=== PATIENT | female | born 1985 ===

== ENCOUNTER 2017-07-16 10:40 | Inpatient (IN) | payer OTHER ==
[2017-07-16 23:39] VITALS: BMI 30.4
[2017-07-16] MEDS ORDERED: Lactated Ringer's 1,000 ML IV SCH (23:45)
--- NOTE | 2017-07-16 23:46 | OBHP ---
Datetime: 07/16/2017 23:36 IP Adm Impression: Term, intrauterine IP Admit Plan: Admit to unit; Initiate labor induction protocol Admit Comment, IP Provider: g1 edc 07/20 presents for induction. denies srom, ctxs, vag bleeding or d ecreased fm. states ob hx uncomplicated pmhx:denies pshx: denies shx: denies etoh, illicit drugs or tobacco nkda medic: pnv I: 39.3wks induction p: admit for cervidel- d/w dr pineda Pelvic Type - PN: Adequate Extremities - PN: Normal Abdomen - PN: Normal Lungs - PN: Normal Heart - PN: Normal Neurologic - PN: Normal HEENT - PN: Normal General - PN: Normal Presentation-Admit: Vertex FHR - Baseline A Provider: 130 Comments, ACOG Physical Exam: 12/27 rpr hiv nr gbs neg EGA AdmitDate IP: 39.3 Vital Signs Provider: Within Normal Limits IP Chief Complaint: Scheduled induction of labor NICHD Variability Prov Fetus A: Moderate 6-25bpm NICHD Accel Fetus A IP Provider: 15X15 NICHD Decel Fetus A IP Provider: None Genitourinary Exam: Normal
--- NOTE | 2017-07-17 00:01 | OBADHP ---
Datetime: 07/16/2017 23:36 Admit Comment, IP Provider: g1 edc 07/20 presents for induction. denies srom, ctxs, vag bleeding or d ecreased fm. states ob hx uncomplicated pmhx:denies pshx: denies shx: denies etoh, illicit drugs or tobacco nkda medic: pnv I: 39.3wks induction p: admit for cervidel- d/w dr pineda Pelvic Type - PN: Adequate Extremities - PN: Normal Abdomen - PN: Normal Lungs - PN: Normal Heart - PN: Normal Neurologic - PN: Normal HEENT - PN: Normal General - PN: Normal Presentation-Admit: Vertex FHR - Baseline A Provider: 130 Comments, ACOG Physical Exam: 12/27 rpr hiv nr gbs neg Vital Signs Provider: Within Normal Limits IP Chief Complaint: Scheduled induction of labor NICHD Variability Prov Fetus A: Moderate 6-25bpm NICHD Accel Fetus A IP Provider: 15X15 NICHD Decel Fetus A IP Provider: None Genitourinary Exam: Normal EGA AdmitDate IP: 39.3 IP Adm Impression: Term, intrauterine IP Admit Plan: Admit to unit; Initiate labor induction protocol
[2017-07-17 00:40] LABS: BASO % 0.3 % (0.0-2.0); EOS % 0.3 % (0.0-4.0); HEMOGLOBIN 11.4 g/dL (11.0-16.0); LYMPH # 2.3 K/uL (1.0-4.3); MEAN CORPUSCULAR HEMOGLOBIN 30.2 pg (27.0-31.0); MEAN CORPUSCULAR HGB CONC 34.7 g/dL (33.0-37.0); MEAN PLATELET VOLUME 9.5 fL (7.2-11.7); MONO % 8.1 % (0.0-10.0); NEUT # 8.9 K/uL (1.8-7.0); NEUT % 72.3 % (50.0-75.0); NRBC % 0.1 % (0.0-2.0); RBC 3.78 Mil/uL (3.80-5.20); RED CELL DISTRIBUTION WIDTH 14.7 % (11.5-14.5); WHITE BLOOD COUNT 12.3 K/uL (4.8-10.8)
[2017-07-17 01:35] LABS: ALBUMIN 3.4 g/dL (3.5-5.0); ALT/SGPT 13 U/L (9-52); AST/SGOT 32 U/L (14-36); BLOOD UREA NITROGEN 12 mg/dL (7-17); CALCIUM 9.2 mg/dl (8.6-10.4); GFR AFRICAN-AMERICAN > 60; GFR NON-AFRICAN AMERICAN > 60
[2017-07-17] MEDS ORDERED: Fentanyl/Bupivacaine HCl 250 ML EPI ONE (06:20)
--- NOTE | 2017-07-17 09:57 | OBPN ---
Datetime: 07/17/2017 09:50 IP Progress Impression: Normal progression of labor IP Progress Plan: Continue present management Membranes, Provider: Intact Contraction Comments Provider: q1-=2mi FHR - Baseline A Provider: 145 Gestation - Est Wks by US: 39.4 IP Progress Note Comment: pt seen adn examiend vss E:M Ct aI TOCO q 1-2 min s/p epudural cervidl removed as per pmd anestheisa dw Dr Carranza Vital Signs Provider: Reviewed; Within Normal Limits NICHD Variability Prov Fetus A: Marked >25bpm Dilatation, Provider: 1 Effacement, Provider: 50 Station, Provider: -3 Datetime: 07/16/2017 23:36 Presentation-Admit: Vertex NICHD Accel Fetus A IP Provider: 15X15 NICHD Decel Fetus A IP Provider: None
[2017-07-17] MEDS ORDERED: Sodium Bicarbonate (8.4%) 50 Meq Syringe ONE (18:45)
[2017-07-17] MEDS ORDERED: Sodium Citrate/Citric Acid 15 ml Sol PO ONE (19:06)
[2017-07-17] MEDS ORDERED: Oxytocin 20 units in LR 2,000 ML IV ONE (19:08)
[2017-07-17] MEDS ORDERED: Sodium Citrate/Citric Acid 15 ml Sol ONE (19:08)
[2017-07-17] MEDS ORDERED: ceFAZolin IV 2 gm in Dextrose 2 GM/50 ML BAG IVPB ONE (19:15)
[2017-07-17] MEDS ORDERED: Triamcinolone Acetonide 40 mg/mL Inj ONE (19:42)
[2017-07-17] MEDS ORDERED: Midazolam 2 MG/2 ML VIAL ONE (19:43)
[2017-07-17] MEDS ORDERED: Oxytocin 10 Units/ml Inj ONE (19:50)
--- NOTE | 2017-07-17 20:36 | OBDS ---
DELIVERY PERSONNEL Delivery Doctor: Christina Carranza MD Scrub Nurse: Radhika Avery Boiler Out: Yris Fallon RN (Annotations: Data stored by Jaja on behalf of user) Anesthesiologist: kandice MATERNAL INFORMATION Delivery Anesthesia: Spinal Medications in Delivery: pitocin 40 units, methergin 0.2 mg IM Estimated Blood Loss (ml): 600 Placenta Cultured: No Maternal Complications: None LABOR SUMMARY EDC: 07/20/2017 00:00 No. Babies in Womb: 1 Attempted: No Labor Anesthesia: None LABOR INFORMATION Reason for Induction: Macrosomia Cervical Ripening Agents: Cervidil (Annotations: removed by dr patton) Cervical Ripening Agents: Cervidil Cervical Ripening Agents: Cervidil Cervical Ripening Agents: Cervidil Cervical Ripening Agents: Cervidil Cervical Ripening Agents: Cervidil Cervical Ripening Agents: Cervidil (Annotations: placed intravaginally by DR MCCOY) Oxytocin: N/A Group B Beta Strep: Negative Steroids Given: None Reason Steroids Not Administered: Not Applicable STAGES OF LABOR Stage 3 hrs: 0 Stage 3 min: 1 VAGINAL DELIVERY Episiotomy: None Laceration Extension: N/A Laceration Type: None CSECTION DELIVERY Primary Indication: Failed Induction CSection Urgency: Emergency CSection Incidence: Primary Labor: Labor Elective: Nonelective CSection Incision: Lower Uterine Transverse BABY A INFORMATION Infant Delivery Date/Time: 07/17/2017 19:45 Method of Delivery: Born in Route : No : N/A Forceps: N/A Vacuum Extraction: N/A Shoulder Dystocia : No SHOULDER DYSTOCIA BABY A Infant Delivery Date/Time: 07/17/2017 19:45 PRESENTATION/POSITION BABY A Presentation: Cephalic Cephalic Presentation: Vertex Vertex Position: Left Occipital Anterior Breech Presentation: N/A PLACENTA INFORMATION BABY A Placenta Delivery Time : 07/17/2017 19:46 Placenta Method of Delivery: Manual Removal Placenta Status: Delivered SCORES BABY A Heart Rate 1 min: >100 bpm Resp Effort 1 min: Good Cry Reflex Irritability 1 min: Cough or Sneeze or Pulls Away Muscle Tone 1 min: Active Motion Color 1 min: Body [place], Extremities Blue SCORE 1 MIN: 9 Heart Rate 5 min: >100 bpm Resp Effort 5 min: Good Cry Reflex Irritability 5 min: Cough or Sneeze or Pulls Away Muscle Tone 5 min: Active Motion Color 5 min: Body [place], Extremities Blue SCORE 5 MIN: 9 INFORMATION BABY A Gestational Age at Delivery: 39.4 Gestational Status: Term Infant Outcome : Liveborn Infant Condition : Stable Infant Sex: Male IDENTIFICATION/MEDS BABY A ID Band Number: [id number] ID Band Location: Left Leg; Left Arm Sensor Applied: Yes Sensor Number: [id number] Sensor Location : Cord Clamp Vitamin K Given : Aquamephyton 1 mg IM Erythromycin Given: Given Both Eyes WEIGHT/LENGTH BABY A Birthweight (gms): 5160 Weight (lb): 11 Weight (oz): 6 Length Inches: 21.00 Length cms: 53.3 CORD INFORMATION BABY A No. Cord Vessels: 3 Nuchal Cord : N/A Cord Blood Taken: Yes Infant Suction: Mouth ASSESSMENT BABY A Infant Complications: None Physical Findings at Delivery: Within Normal Limits Infant Respirations: Appears Normal Account Maintenance Representative/ALS Called : No Infant Care By: Dr. Lamb Transferred To: [facility]
--- NOTE | 2017-07-17 20:40 | PCM.SURG1 ---
Surgeon's Initial Post Op Note - Surgeon's Notes Surgeon: Dr Carranza Dna Analyst: Dr. Cadena Type of Anesthesia: Other Anesthesia Administered By: Dr. Barros Pre-Operative Diagnosis: 32 yo Failed Induction, Macrosomia Operative Findings: Normal tubes and ovaries , Male infant cephalic presentation 8 and 9 Weight 11 lb 6 oz Post-Operative Diagnosis: Same as above Operation Performed: Primary Ltcs Specimen/Specimens Removed: Cord blood, cord Estimated Blood Loss: EBL {In ML}: 600 Blood Products Given: N/A Drains Used: No Drains Post-Op Condition: Good Date of Surgery/Procedure: 07/17/17 Time of Surgery/Procedure: 20:39
[2017-07-18] MEDS: Lactated Ringer's 1,000 ML IV SCH ×2 (04:57→13:22)
[2017-07-18 08:20] LABS: MEAN CORPUSCULAR HEMOGLOBIN 30.3 pg (27.0-31.0); MEAN CORPUSCULAR HGB CONC 34.8 g/dL (33.0-37.0); MEAN PLATELET VOLUME 9.2 fL (7.2-11.7); RBC 3.62 Mil/uL (3.80-5.20); RED CELL DISTRIBUTION WIDTH 14.9 % (11.5-14.5); WHITE BLOOD COUNT 16.3 K/uL (4.8-10.8)
[2017-07-18] MEDS: Prenatal Multivit/Folic Acid/Iron Tab PO SCH (09:41)
[2017-07-18] MEDS: Oxycodone/Acetaminophen 5/325 mg Tab PO PRN (18:22)
[2017-07-18] MEDS ORDERED: Bisacodyl 5mg EC Tab PO ONE (20:42)
--- NOTE | 2017-07-18 23:19 | OBPPN ---
Datetime: 07/18/2017 23:17 PP Pain Prov: Within normal limits PP Nausea Prov: Denies PP Flatus Prov: Yes PP Breasts Prov: Normal PP Heart Prov: Normal PP Lungs Prov: Normal PP Abdomen/Uterus Prov: Normal PP Lochia Prov: Normal PP Vulva/Perineum Prov: Normal PP CVA Tenderness Prov: Normal PP Extremities Prov: Normal PP Impression Prov: Normal progression PP Plan Prov: Continue present management Vital Signs Provider PP: Reviewed
[2017-07-19] MEDS: Oxycodone/Acetaminophen 5/325 mg Tab PO PRN (00:06)
[2017-07-19 00:15] VITALS: RESP 20
[2017-07-19] MEDS: Prenatal Multivit/Folic Acid/Iron Tab PO SCH (09:13)
[2017-07-20 07:58] VITALS: BP 105/70; PULSE 71; TEMP 98.7; O2SAT 98
[2017-07-20] MEDS: Prenatal Multivit/Folic Acid/Iron Tab PO SCH (09:45)
--- NOTE | 2017-07-20 13:44 | CP.PCM.PN ---
Subjective - Date & Time of Evaluation Date of Evaluation: 07/20/17 Time of Evaluation: 13:40 - Subjective Subjective: 32 yo S/P Primary LTCS Objective - Vital Signs/Intake and Output Vital Signs (last 24 hours): Temp Pulse Resp BP Pulse Ox 98.7 F 71 20 105/70 98 07/20/17 07:56 07/20/17 07:56 07/20/17 07:56 07/20/17 07:56 07/20/17 07:56 - Medications Medications: Current Medications Acetaminophen (Tylenol 650 Mg Supp) 650 mg [place] Q6 PRN PRN Reason: Fever >100.4 F Acetaminophen (Tylenol 325mg Tab) 650 mg PO Q6 PRN PRN Reason: Agitation Docusate Sodium (Colace) 100 mg PO BID [facility] Last Admin: 07/20/17 09:45 Dose: 100 mg Famotidine (Pepcid) 20 mg IVP DAILY [facility] Ibuprofen (Motrin Tab) 600 mg PO Q6H PRN PRN Reason: Pain, Mild (1-3) Last Admin: 07/19/17 17:17 Dose: 600 mg Oxycodone/Acetaminophen (Percocet 5/325 Mg Tab) 2 tab PO Q4H PRN PRN Reason: Pain, severe (8-10) Stop: 07/20/17 20:43 Last Admin: 07/19/17 00:06 Dose: 2 tab Multivit/Folic Acid/Iron () 1 tab PO DAILY [facility] Last Admin: 07/20/17 09:45 Dose: 1 tab - Labs Labs: 07/18/17 08:06 07/17/17 01:25 - Constitutional Appears: Well - Head Exam Head Exam: ATRAUMATIC, NORMAL INSPECTION, NORMOCEPHALIC - Eye Exam Eye Exam: EOMI, Normal appearance, PERRL Pupil Exam: NORMAL ACCOMODATION, PERRL - ENT Exam ENT Exam: Mucous Membranes Moist, Normal Exam - Neck Exam Neck Exam: Full ROM, Normal Inspection. absent: Lymphadenopathy - Respiratory Exam Respiratory Exam: Clear to Ausculation Bilateral, NORMAL BREATHING PATTERN - Cardiovascular Exam Cardiovascular Exam: REGULAR RHYTHM, +S1, +S2. absent: Murmur - GI/Abdominal Exam GI & Abdominal Exam: Soft, Normal Bowel Sounds. absent: Tenderness - Rectal Exam Rectal Exam: NORMAL INSPECTION - Exam Exam: Circumcision, NORMAL INSPECTION External exam: NORMAL EXTERNAL EXAM Speculum exam: NORMAL SPECULUM EXAM Bimanual exam: NORMAL BIMANUAL EXAM - Extremities Exam Extremities Exam: Full ROM, Normal Capillary Refill, Normal Inspection. absent : Joint Swelling, Pedal Edema - Back Exam Back Exam: NORMAL INSPECTION - Neurological Exam Neurological Exam: Alert, Awake, CN II-XII Intact, Normal Gait, Oriented x3 - Psychiatric Exam Psychiatric exam: Normal Affect, Normal Mood - Skin Skin Exam: Dry, Intact, Normal Color, Warm - Additional Findings Additional findings: Incision: C/D/I Assessment and Plan - Assessment and Plan (Free Text) Assessment: 32 yo S/P Primary LTCS Plan: Stable Discharge Home
--- NOTE | 2017-07-23 06:54 | OP ---
PROCEDURE DATE: 07/17/2017 PREOPERATIVE DIAGNOSIS: A 32-year-old female, 1, para 0, at 39 and 4 weeks' gestation with failure of induction of microsomia. POSTOPERATIVE DIAGNOSIS: A 32-year-old female, 1, para 0, at 39 and 4 weeks' gestation with failure of induction of microsomia. PROCEDURE: Primary low transverse section. SURGEON: Libby Carranza MD ESTATE ADMINISTRATOR: Lucas Cadena MD ANESTHESIA: Epidural. COMPLICATIONS: None. ESTIMATED BLOOD LOSS: Approximately 600 mL. FLUID: 1500 of LR. URINE OUTPUT: 300 mL of clear urine at the end of the procedure. INDICATIONS: A 32-year-old female, 1, para 0, at 39 and 4 weeks' gestation, failure of induction, and suspected microsomia. FINDING: Male , cephalic presentation. Analytics Intern was present at the time of the delivery. Apgars were 8 and 8. Normal uterus, tubes, and ovaries. DESCRIPTION OF PROCEDURE: The patient was taken to the operating room where epidural anesthesia was found to be adequate. She was then prepped and draped in normal sterile fashion in a dorsal supine position with a leftward tilt. A Pfannenstiel incision was made with a scalpel and carried to the underlying layers of the fascia with the Bovie. The fascia was then excised in the midline, the incision extended laterally with the Zelaya scissors. The superior aspect of the fascia was identified and grasped with a Dianna clamps, elevated, and the underlying rectus muscle was bluntly. Attention was then turned to the inferior aspect of the incision, which in a similar fashion was grasped, tented up with Dianna clamps, and the rectus muscle was dissected off bluntly. The rectus muscle was then in the midline and the peritoneum was identified and tented up and entered sharply with the Metzenbaum scissors. The peritoneum incision was extended superiorly and inferiorly with good visualization of the bladder. The bladder blade was then inserted and the vesicouterine peritoneum was identified and grasped with the pickups and entered sharply with the Metzenbaum scissors. The incision was then extended laterally and the bladder flap was created rigidly. The bladder blade was then reinserted, entering the lower uterine segment in a transverse fashion with a scalpel. The uterine incision was then extended laterally with the bandage scissors and the bladder blade was then removed and the head was delivered atraumatically. The nose and the mouth were suctioned. The cord was clamped and cut. The infant handed off to the awaiting curator of manuscripts. Cord gasses were sent. The placenta was then removed manually and the uterus was exteriorized and cleaned of all clots and debris. The uterine incision was repaired with 1-0 Vicryl in a running locking fashion and a second layer of the same suture was used for excellent hemostasis. The bladder flap was reapproximated with 2-0 chromic. The gutters were cleaned of all clots and debris. The peritoneum was reapproximated with 2-0 chromic. The fascia was reapproximated with 0 Vicryl in a running fashion. The skin was closed with 4-0 Monocryl. The patient tolerated the procedure well. Sponge, lap, and needle count were correct x2. A 2 gm of cefotetan was given at the cord clamps. The patient was taken to the recovery room in stable condition. Libby Carranza MD
== END 2017-07-20 16:25 | disposition home or self-care (01) | DRG 766 ==
LOC: C.EROB 10:40 → C.4D 23:45 → C.4M 07-17 23:44
PROVIDERS: ADMIT Obstetrics & Gynecology; ATTEND Obstetrics & Gynecology
PROC: 10D00Z1 Extraction of Products of Conception, Low, Open Approach (ICD-10-PCS; principal; 2017-07-17)
PROC: 3E0P7VZ Introduction of Hormone into Female Reproductive, Via Natural or Artificial Opening (ICD-10-PCS; 2017-07-17)
DX: O61.9 Failed induction of labor, unspecified (principal); O36.63X0 Maternal care for excessive fetal growth, third trimester, not applicable or unspecified; Z37.0 Single live birth; Z3A.39 39 weeks gestation of pregnancy